=== PATIENT | male | born 1965 | race Caucasian/White ===

== ENCOUNTER 2020-01-01 15:31 | Emergency (ER) | payer MEDICAID, SELFPAY ==
[2020-01-01] VITALS (42 sets, daily range): BP systolic 143–147; BP diastolic 89–100; PULSE 71–87; RESP 0–20; TEMP 37; O2SAT 90–99; BMI 37.3
--- NOTE | 2020-01-01 15:43 | ED_ITS ---
Entered by Alisa Keller, acting as scribe for HPI - Chest Pain General: Chief Complaint: Chest Pain Stated Complaint: Chest pain Time Seen by Provider: 01/01/20 15:42 Source: patient Mode of arrival: ambulatory Limitations: no limitations History of Present Illness: HPI narrative: 54 yo Male presents to ED with complaint of chest pain that started about 20 minutes ago. Pt states that he has sharp, stabbing pain. Pt states that the pain is substernal and doesn't radiate. MD complaint: chest pain Onset (ago): minute(s) (20) Timing of current episode: constant and still present Prior episodes: Yes Onset: during rest Pain location: substernal Pain radiation: none Severity: severe Quality: sharp Relieving factors: nothing Exacerbating factors: nothing Associated symptoms: Reports diaphoresis, dyspnea and nausea; Deny palpitations or syncope Treatment prior to arrival: none Risk Factors: Coronary artery disease risk factors: diabetes, smoking history and hypertension Review of Systems General: Reports: other (negative unless marked) Const: Reports: diaphoresis Eyes: Denies: change in vision or blurry vision ENMT: Denies: throat pain, painful swallowing, hoarseness, ear pain, ear discharge, Change in hearing or nasal discharge Card: Reports: chest pain; Denies: palpitations, irregular heart rhythm, syncope, pre-syncope, shortness of breath on exertion or shortness of breath when lying down Resp: Reports: shortness of breath; Denies: productive cough, non-productive cough, wheezing, coughing up blood or chest congestion GI: Reports: nausea : Denies: flank pain, difficulty urinating, painful urination, urinary frequency, urinary urgency, decreased urine ouput, urinary incontinence or blood in urine Musc: Denies: neck pain, back pain, extremity pain, extremity swelling, joint pain, joint swelling, joint warmth or joint stiffness Skin/Breast: Denies: rash, skin tenderness or yellow skin Neuro: Denies: headache, numbness in extremities, weakness in extremities, changes in sensation, lack of coordination, difficulty walking, dizziness, vertigo or confusion Endo: Denies: excessive thirst, tired all the time, cold intolerance, excessive sweating, flushing or hot flashes Jhon/Lymph: Denies: easy bruising, easy bleeding, petechiae or enlarged lymph nodes All/Imm: Denies: hives, throat swelling, tongue swelling, facial swelling or acute wheezing PFSH ED PFSH: Statuses (acute, chronic, etc) shown below reflect problem list status as previously entered and may not be historically accurate Social History Smoking and tobacco status: current every day smoker Physical Exam Const: COMMON NORMALS: no apparent distress, oriented x3, no limitations, healthy appearing and well nourished EXAM LIMITATIONS: no altered mental status GENERAL APPEARANCE: cooperative, well kempt and well developed ORIENTATION/CONSCIOUSNESS: Yes awake HENMT: COMMON NORMALS: normocephalic, head/scalp atraumatic, hearing grossly normal bilaterally, external ears normal, EAC's normal, external nose normal and moist oral mucous membranes HEAD & SCALP: normal to inspection, normocephalic and atraumatic FACE & SINUS: normal facial exam and face symmetric NOSE: external nose normal and nares normal EXTERNAL EAR: Yes external ears normal EXTERNAL AUDITORY CANAL: EAC's normal MOUTH: oral and palatal mucosa normal and tongue normal Eye: COMMON NORMALS: PERRL, EOMs intact bilaterally, conjunctivae normal and no scleral icterus GENERAL EYE: normal appearance of both eyes and normal light reflex CONJUNCTIVA: Yes conjunctivae normal SCLERA: sclerae normal CORNEA: Yes corneas normal PUPIL: Yes PERRL DIRECT OPHTHALMOSCOPY: Yes normal light reflex Neck/C-Spine: COMMON NORMALS: full ROM, no lymphadenopathy, supple, no meningeal signs and no JVD GENERAL: Yes normal visual inspection and Yes trachea midline CERVICAL SPINE: Yes cervical ROM normal Chest: COMMONS NORMALS: inspection of chest normal and palpation of chest normal Resp: COMMON NORMALS: normal respiratory effort, no retractions, no use of accessory muscles and clear to auscultation bilaterally EFFORT & INSPECTION: Yes able to speak in complete sentences AUSCULTATION: clear to auscultation bilaterally Cardio: COMMON NORMALS: no JVD, regular rate, regular rhythm, S1 normal heart sound, S2 normal heart sound, no gallops, no clicks, no murmurs and no rub JUGULAR VENOUS DISTENTION: no JVD RATE: regular rate RHYTHM: regular rhythm HEART SOUNDS: S1 normal and S2 normal GI: COMMON NORMALS: soft to palpation, non-tender, no hepatosplenomegaly and no masses INSPECTION: Yes normal to inspection PALPATION: Yes soft and Yes no hepatosplenomegaly : COMMON NORMALS: Yes no CVA tenderness BLADDER/KIDNEY EXAM: Yes no CVA tenderness Back/Pelvis: COMMON NORMALS: no CVA tenderness, thoracic and lumbar spine normal to inspection, no thoracic nor lumbar tenderness and thoraco-lumbar ROM normal Extremity: COMMON NORMALS: normal to inspection, full ROM, normal capillary refill, no joint enlargement, no clubbing, cyanosis or edema and no calf tenderness Neuro: COMMON NORMALS: oriented x3, CN's II-XII intact bilaterally, moves all extremities, no focal motor deficits and no sensory deficits noted MENINGEAL SIGNS: Yes no meningeal signs Psych: COMMON NORMALS: mental status grossly normal, thought process normal, cooperative, affect normal, speech normal and activity/motor behavior normal APPEARANCE: Yes well kempt SPEECH: Yes normal speech THOUGHT PROCESS: normal thought process Skin: COMMON NORMALS: no rashes or lesions noted, skin turgor normal, no jaundice, no petechiae and no mottling GENERAL SKIN EXAM: no rashes or lesions noted and turgor normal Course Vital Signs: Vital signs: Vital Signs Temperature 98.6 F 01/01/20 15:45 Pulse Rate 81 01/01/20 16:17 Respiratory Rate 16 01/01/20 16:17 Blood Pressure 143/89 01/01/20 16:17 Pulse Oximetry 95 01/01/20 16:17 MDM - Chest Pain MDM Narrative: Medical decision making narrative: HEART Score - 3 I went to discuss the patient's care with them and they were walking out the door at that time. They were apologetic stating they knew we were busy and did not have time. They did get the results of their labs but refused to stay for further care. Then there so they were leaving against my advice. They would not stay to receive discharge instructions or sign AMA papers. Lab Data: Labs: Lab Results 01/01/20 01/01/20 01/01/20 Range/Units 16:02 16:02 16:02 WBC 9.9 (4.0-10.0) 10^3/ uL RBC 4.67 (4.1-5.3) 10^6/u L Hgb 14.1 (11.7-16.6) g/dL Hct 42.8 (42.0-52.0) % MCV 91.6 (80-94) fL MCH 30.2 (28.0-34.0) pg MCHC 32.9 (30.0-36.0) g/dL RDW 13.5 (12.1-15.1) % Plt Count 158 (130-400) 10^3/c mm MPV 12.0 H (7.4-10.4) fL Neut % (Auto) 71.0 % Lymph % (Auto) 21.6 % [place] % (Auto) 4.4 % Eos % (Auto) 2.2 % Baso % (Auto) 0.5 % Neut # (Auto) 7.0 (1.8-7.7) 10^3/u L Lymph # (Auto) 2.1 (0.8-4.8) 10^3/u L [place] # (Auto) 0.4 (0.2-0.9) 10^3/u L Eos # (Auto) 0.2 (0.0-0.8) 10^3/u L Baso # (Auto) 0.1 (0.0-0.1) 10^3/u L Nucleated RBC % (a uto) 0 % Nucleated RBCs # 0.0 /100WBC PT 12.30 (10.5-13.3) SECO NDS INR 0.89 (0.8-1.2) D-Dimer 0.44 (0-0.59) ug/mIFE U Sodium 138 (136-145) mmol/L Potassium 3.9 (3.5-5.1) mmol/L Chloride 101 (98-107) mmol/L Carbon Dioxide 22 (22-29) mmol/L Anion Gap 18.9 (5-19) BUN 12 (6-20) mg/dL Creatinine 0.6 L (0.7-1.2) mg/dL GFR Calculation 141.5 H (90-130) mL/min Glucose 136 H (65-115) mg/dL Calcium 9.5 (8.5-10.5) mg/dL Magnesium 2.0 (1.7-2.3) mg/dL Total Bilirubin 0.2 (0.15-1.2) mg/dL AST 14 (0-40) U/L ALT 14 (0-41) U/L Alkaline Phosphata se 66 (40-130) IU/L Creatine Kinase 178 (39-308) U/L Troponin T Baselin e (0-15) ng/mL Troponin T [address] [place] (0-15) ng/mL Delta Troponin T (0-10) ABS# Total Protein 6.3 L (6.6-8.7) g/dL Albumin 4.2 (3.5-5.2) g/dL Globulin 2.1 (1.3-4.6) g/dL Lipase 31 (13-60) U/L 01/01/20 01/01/20 Range/Units 16:02 18:08 WBC (4.0-10.0) 10^3/ uL RBC (4.1-5.3) 10^6/u L Hgb (11.7-16.6) g/dL Hct (42.0-52.0) % MCV (80-94) fL MCH (28.0-34.0) pg MCHC (30.0-36.0) g/dL RDW (12.1-15.1) % Plt Count (130-400) 10^3/c mm MPV (7.4-10.4) fL Neut % (Auto) % Lymph % (Auto) % [place] % (Auto) % Eos % (Auto) % Baso % (Auto) % Neut # (Auto) (1.8-7.7) 10^3/u L Lymph # (Auto) (0.8-4.8) 10^3/u L [place] # (Auto) (0.2-0.9) 10^3/u L Eos # (Auto) (0.0-0.8) 10^3/u L Baso # (Auto) (0.0-0.1) 10^3/u L Nucleated RBC % (a uto) % Nucleated RBCs # /100WBC PT (10.5-13.3) SECO NDS INR (0.8-1.2) D-Dimer (0-0.59) ug/mIFE U Sodium (136-145) mmol/L Potassium (3.5-5.1) mmol/L Chloride (98-107) mmol/L Carbon Dioxide (22-29) mmol/L Anion Gap (5-19) BUN (6-20) mg/dL Creatinine (0.7-1.2) mg/dL GFR Calculation (90-130) mL/min Glucose (65-115) mg/dL Calcium (8.5-10.5) mg/dL Magnesium (1.7-2.3) mg/dL Total Bilirubin (0.15-1.2) mg/dL AST (0-40) U/L ALT (0-41) U/L Alkaline Phosphata se (40-130) IU/L Creatine Kinase (39-308) U/L Troponin T Baselin e 8 (0-15) ng/mL Troponin T [address] [place] 7.10 (0-15) ng/mL Delta Troponin T -0.90 L (0-10) ABS# Total Protein (6.6-8.7) g/dL Albumin (3.5-5.2) g/dL Globulin (1.3-4.6) g/dL Lipase (13-60) U/L Imaging Data^: CXR: Radiologist's impression: [address] [address] XRay Report Signed Patient: Charmaine Neely #: [id number] : 1965Acct#:[id number] Age/Sex: 54 / MADM Date: 01/01/20 [facility] Attending Dr: Ordering Provider/Ordering MD: Roula Cleary DO Date of Service: 01/01/20 Procedure(s): XR chest 1V portable [id number] Accession Number(s): [id number] Report Number: [id number] WS: [id number] Portable AP upright chest, 01/01/2020 Clinical Data: cough Comparison: Portable chest, 11/01/2019. Findings: No nodules, masses or effusions are seen. The heart is normal. The pulmonary vascularity is not increased. No pneumonia or pneumothorax is seen. Monitor leads are on the chest wall. XR/XR chest 1V portable [id number] Impression: Negative chest. Dictated By:Vanessa Holden MD Signed By:Vanessa Holden MDSigned Date/Time:01/01/20 161 DD/ 161 EKG Data^: EKG 1: Attestation: I personally reviewed and interpreted this EKG as follows: EKG interpretation date: 01/01/20 EKG interpretation time: 15:42 Interpretation: Normal sinus rhythm at 84 beats a minute, no acute ST segment changes. EKG 2: Attestation: I personally reviewed and interpreted this EKG as follows: EKG interpretation date: 01/01/20 Interpretation: Normal sinus rhythm at 79 beats a minute, no acute ST segment changes. Discharge Plan Discharge Patient Disposition: Left Against Medical Advice Condition: Stable Referrals: Dayo Fernandez DO [Family Provider] - Coding Level of Care Code [facility] Manager for Chg Fwd Exam Problem Focused The documentation recorded by the Arianna hardy Carmen, accurately reflects the service I personally performed and the decisions made by Madiha macedo Eli N Jan 01, 2020 15:31
--- NOTE | 2020-01-01 15:45 | XR_ITS ---
WS: [id number] Portable AP upright chest, 01/01/2020 Clinical Data: cough Comparison: Portable chest, 11/01/2019. Findings: No nodules, masses or effusions are seen. The heart is normal. The pulmonary vascularity is not increased. No pneumonia or pneumothorax is seen. Monitor leads are on the chest wall. XR/XR chest 1V portable [id number] Impression: Negative chest.
--- NOTE | 2020-01-01 15:45 | ECG_ITS ---
Measurements Intervals [place] Rate: 84 P: 51 [place]: 156 QRS: 72 QRSD: 98 T: 53 QT: 344 QTc: 408 SINUS RHYTHM Compared to ECG 11/01/2019 12:40:39 T-wave abnormality no longer present Electronically Signed On 01-01-2020 20:06:43 PROTEIN CHEMIST by Mary Ellen Song M.D. [email or web address]
[2020-01-01] MEDS: aspirin 81 mg Chew Tablet 324 MG PO (16:11)
[2020-01-01 16:15] LABS: Basophils # 0.1 10^3/uL (0.0-0.1); Basophils % 0.5 %; Eosinophils # 0.2 10^3/uL (0.0-0.8); Eosinophils % 2.2 %; Hematocrit 42.8 % (42.0-52.0); Hemoglobin 14.1 g/dL (11.7-16.6); Lymphocytes # 2.1 10^3/uL (0.8-4.8); Lymphocytes % 21.6 %; Mean Corpuscular HGB Conc 32.9 g/dL (30.0-36.0); Mean Corpuscular Hemoglobin 30.2 pg (28.0-34.0); Mean Corpuscular Volume 91.6 fL (80-94); Monocytes # 0.4 10^3/uL (0.2-0.9); Monocytes % 4.4 %; Nucleated Red Blood Cells % 0 %; Platelet Count 158 10^3/cmm (130-400); Red Blood Count 4.67 10^6/uL (4.1-5.3); Red Cell Distribution Width 13.5 % (12.1-15.1); White Blood Count 9.9 10^3/uL (4.0-10.0)
[2020-01-01 16:29] LABS: Troponin(5th) Baseline 8 ng/mL (0-15)
[2020-01-01 16:32] LABS: INR 0.89 (0.8-1.2)
[2020-01-01 16:35] LABS: D Dimer 0.44 ug/mIFEU (0-0.59)
[2020-01-01 16:53] LABS: Alanine Aminotransferase 14 U/L (0-41); Albumin Level 4.2 g/dL (3.5-5.2); Alkaline Phosphatase 66 IU/L (40-130); Anion Gap 18.9 (5-19); Blood Urea Nitrogen 12 mg/dL (6-20); Calcium 9.5 mg/dL (8.5-10.5); Carbon Dioxide 22 mmol/L (22-29); Chloride 101 mmol/L (98-107); Creatine Phosphokinase 178 U/L (39-308); Globulin 2.1 g/dL (1.3-4.6); Glomerular Filtration Rate 141.5 mL/min (90-130); Glucose 136 mg/dL (65-115); Potassium 3.9 mmol/L (3.5-5.1); Sodium 138 mmol/L (136-145); Total Bilirubin 0.2 mg/dL (0.15-1.2); Total Protein 6.3 g/dL (6.6-8.7)
[2020-01-01 16:54] LABS: Aspartate Amino Transferase 14 U/L (0-40); Lipase 31 U/L (13-60)
--- NOTE | 2020-01-01 21:45 | ECG_ITS ---
Measurements Intervals [place] Rate: 79 P: 55 MD: 168 QRS: 67 QRSD: 99 T: 47 QT: 351 QTc: 405 SINUS RHYTHM Compared to ECG 11/01/2019 12:40:39 T-wave abnormality no longer present Electronically Signed On 01-01-2020 20:09:10 REGIONAL MARKETING DIRECTOR by Mary Ellen Song M.D. [email or web address]
== END 2020-01-01 19:10 | disposition left against medical advice (07) ==
PROVIDERS: Emergency Provider Emergency Medicine; Family Provider Internal Medicine
DX: R07.9 Chest pain, unspecified (principal); Z53.21 Procedure and treatment not carried out due to patient leaving prior to being seen by health care provider; F17.210 Nicotine dependence, cigarettes, uncomplicated
CPT/HCPCS: 36415; 71045; 80053; 82550; 83690; 83735; 84484; 85025; 85378; 85610; 93005; 99283; 99284

== ENCOUNTER → 2022-06-01 07:27 | Outpatient (BNVA) | payer MEDICAID, SELFPAY | PROVIDERS: Family Provider Internal Medicine; PCP Nurse Practitioner Family; Visit Provider Nurse Practitioner Family | DX: R39.9 Unspecified symptoms and signs involving the genitourinary system (principal); N48.1 Balanitis; N35.811 Other urethral stricture, male, meatal | CPT/HCPCS: 81003; 99203 ==

== ENCOUNTER → 2022-06-05 08:24 | Outpatient (BNVA) | payer MEDICAID, SELFPAY | PROVIDERS: Family Provider Internal Medicine; PCP Nurse Practitioner Family; Visit Provider Urology | DX: R39.9 Unspecified symptoms and signs involving the genitourinary system (principal); N48.1 Balanitis; N35.811 Other urethral stricture, male, meatal | CPT/HCPCS: 51798; 81003; 99214 ==

== ENCOUNTER 2022-06-08 06:54 | Day surgery (SDC) | payer MEDICAID, SELFPAY ==
[2022-06-07 09:13] VITALS: BMI 36.5
[2022-06-08] VITALS (13 sets, daily range): BP systolic 106–165; BP diastolic 60–104; PULSE 64–81; RESP 16–20; TEMP 36.4–36.8; O2SAT 92–97
[2022-06-08 07:36] LABS: Glucose Point of Care 129 mg/dL (70-110)
[2022-06-08] MEDS: sodium chloride 0.9% 1,000 ML 30 ML IV (08:00)
--- NOTE | 2022-06-08 08:01 | ANES.PREANE2 ---
Pre-Anesthetic Assessment Height/Weight: Height 1.8 m Weight 118.841 kg Temp Pulse Resp BP Pulse Ox 97.9 F 81 20 H 159/97 94 06/08/22 07:11 06/08/22 07:11 06/08/22 07:11 06/08/22 07:11 06/08/22 07:11 Preop Diagnosis: Severe meatal stenosis with near retention Operation Date: 06/08/22 08:25 Proposed Procedures p CYSTOSCOPY URETHRAL DILATION VENTRAL MEATOTOMY 22575 05757, N35.919(Not Applicable) - Ben Ojeda MD s Meatotomy, Uretheral(Not Applicable) - Ben Ojeda MD Familial anesthetic complications: hard to wake up Was Beta Kyler taken within 24 hours: N/A Was Clonidine taken within 24 hours: N/A Last intake: Intake Last Liquid Date 06/07/22 Last Liquid Time 22:30 Last Solid Date 06/07/22 Last Solid Time 18:30 Social Tobacco and No alcohol Exam alert, oriented x 3, clear to auscultation bilaterally and regular rate & rhythm Airway Mallampati: Class III Dentition: other (no teeth) Pulmonary None reported CV/HEM Hypertension None reported GI Gastroesophageal Reflux Disease Metabolic Diabetes Mellitus and Morbid Obesity Anesthetic Plan ASA status: 3 Anesthesia: General Risk of > 500 ml blood loss (7ml/kg in children): No Medications/Allergies Home Medications Medication Instructions Recorded Confirmed Last Taken Type amlodipine 5 mg tablet 10 mg PO DAILY 04/27/22 06/08/22 06/07/22 History aspirin 81 mg chewable tablet 81 mg PO DAILY 04/27/22 06/07/22 06/05/22 History (Angella Chewable Low Dose Aspirin) blood sugar diagnostic (Advanced 04/27/22 06/05/22 Unknown History Gluc Meter Test Strip) hydrochlorothiazide 25 mg tablet 25 mg PO PRN PRN 04/27/22 06/07/22 Unknown History lisinopril 10 mg tablet 10 mg PO DAILY 04/27/22 06/08/22 06/07/22 History metformin 500 mg tablet 500 mg PO BID 04/27/22 06/08/22 06/07/22 History montelukast 10 mg tablet 10 mg PO DAILY 04/27/22 06/08/22 06/07/22 History pantoprazole 40 mg tablet,delayed 40 mg PO DAILY 04/27/22 06/08/22 06/07/22 History release (Protonix) sertraline 100 mg tablet 100 mg PO DAILY 04/27/22 06/08/22 06/07/22 History sitagliptin 100 mg tablet (Januvia) 100 mg PO DAILY 04/27/22 06/07/22 06/04/22 History trazodone 100 mg tablet 100 mg PO DAILY tab 04/27/22 06/08/22 06/07/22 History insulin detemir U-100 100 unit/mL 6 unit SUBCUT DAILY 06/01/22 06/08/22 06/07/22 History subcutaneous solution (Levemir U-100 Insulin) nystatin-triamcinolone 100,000 1 applic TOPICAL BID #60 g 06/01/22 06/07/22 Unknown Rx unit/g-0.1 % topical cream ibuprofen 800 mg tablet 800 mg PO BID 06/07/22 06/08/22 06/08/22 History Allergies Allergy/AdvReac Type Severity Reaction Status Date / Time adhesive tape Allergy Unknown Verified 06/07/22 09:07 bupropion [From Wellbutrin] Allergy ALGY-Rash Verified 06/07/22 09:07 codeine Allergy ALGY-Rash Verified 06/07/22 09:07 hydromorphone [From Dilaudid] Allergy ADR-Nausea Verified 06/07/22 09:07 ALL NARCOTICS Allergy ADR-Vomitin Uncoded 06/07/22 09:07 g CILLINS Allergy ALGY-Swell Uncoded 06/07/22 09:07 Lip/Tongue/Throat Current Medications Generic Name Dose Route Start Last Admin Trade Name Freq PRN Reason Stop Dose Admin Sodium Chloride 1,000 mls @ 30 mls/hr 06/08/22 07:00 06/08/22 08:00 Sodium Chloride 0.9% IV 06/09/22 06:59 30 mls/hr .Q24H CHUY Administration PFSH Anesthesia Medical History Depression GERD (gastroesophageal reflux disease) Hypertension Type 2 diabetes mellitus Surgical History History of placement of ear tubes Hx of appendectomy Hx of hernia repair X 3 Hx of sinus surgery X 4 Family History Father Heart attack Mother Diabetes Heart disease Fibromyalgia Social History Smoking and tobacco status: current every day smoker Alcohol intake: never Marital status: Current occupational status: disabled History of recent travel: No Data Anesthesia Cardiac Studies: No Data to Display
--- NOTE | 2022-06-08 09:27 | P.HPUD_ITS ---
Surgery/Procedure H&P Update DATE OF PROCEDURE: June 08, 2022 DATE H&P PERFORMED: 06/05/22 H&P UPDATE INFORMATION: I have reviewed H&P completed within last 30 days, I have examined patient prior to procedure, No changes to prior documentation and H&P is in [facility] [place] EMR on date indicated CHANGES TO PREVIOUS DOCUMENTATION: None PLANNED PROCEDURE: Operation Date: 06/08/22 08:25 Proposed Procedures p CYSTOSCOPY URETHRAL DILATION VENTRAL MEATOTOMY 17074 [id number], N35.919(Not Applicable) - Ben Ojeda MD s Meatotomy, Uretheral(Not Applicable) - Ben Ojeda MD
--- NOTE | 2022-06-08 09:27 | P.OP_ITS ---
Operative Report Date of procedure: June 08, 2022 Pre-op diagnosis: Severe meatal stenosis with near retention Post-op diagnosis: Severe meatal stenosis with near retention Procedure done: 1. Cystoscopy with urethral dilation Implants: 16 Gabonese coud? tip Skinner catheter Specimens removed/disposition: None Pathology: None Surgeon: Rusty Anesthesia: General Estimated blood loss: <10 cc Urine output: Not measured Complications: None Findings: Very tight pinpoint meatal stenosis with some narrowing into the fossa navicularis. Well dilated and Skinner catheter left in place for passive dilation. He may still at some point need a ventral meatotomy after he is healed up more appropriately. There is a pretty good chance that self-catheterization will maintain the meatus adequately without meatotomy. Brief History: Kuldip is a 56-year-old white male originally evaluated in May 2022 for progressive bladder outlet obstructive symptoms and balanitis. Was found to have a pinpoint opening of the urethral meatus. Was treated with combination triamcinolone and nystatin cream for the external condition and recommended urethral dilation possible ventral meatotomy. Admitted for that through outpatient surgery today. Procedure: After routine preoperative evaluation examination and obtaining of informed consent he was taken to the operating suite on 06/08/2022 where general anesthesia was administered without difficulty after appropriate timeout was performed, SCDs confirmed to be functioning, preoperative antibiotics administered, beta-anderson protocol confirmed. Prepped and draped in usual sterile fashion in dorsolithotomy position paying careful attention to avoiding pressure points. The meatus was examined. It was pinpoint type. A well-lubricated 8 Gabonese [place] sound was utilized to dilate the very distal aspect of the urethra. This was then replaced with a 10 Gabonese and then a 12 Gabonese [place] sound dilating only the distal aspect of the urethra and fossa navicularis. A 7 Gabonese ureteroscope was then advanced into the urethra and into the bladder. The entire urethra showed some inflammatory changes mostly consistent with likely chronic obstruction from the distal urethral obstruction meatal/fossa navicularis narrowing. A wire was passed through the scope and the urethra was dilated with Amplatz renal dilators up to 20 Gabonese. The first 3 over the wire and the remainder of the dilators up to 20 Gabonese were passed over the snake. They were only passed into the distal urethra just proximal to the narrowing A 16 Gabonese coud? tip catheter was converted to a cowl[place] tip catheter and was passed over the wire. It was still tight but the catheter was able to be manipulated into the bladder. Catheter confirmed to be draining and then the balloon inflated with 10 cc. Confirmation of balloon function was made and then the wire was removed. Dressing with antibiotic ointment was applied to the meatus/catheter junction He tolerated procedure well without complications and was awakened in the operating room and returned to the recovery room in stable condition. PLANS: 1. Anticipate discharge from outpatient surgery 2. Follow-up late next week with ANGY Barger for voiding trial and SCIC instruction. The plan will be to focus only on the distal 2 to 3 cm of the urethra to keep urethral stricture patency maintained.
[2022-06-08] MEDS: ceFAZolin 2,000 MG in sodium chloride 0.9% (plus) 50 ML 100 MG IV (10:03)
[2022-06-08] MEDS: lidocaine 2% Urojet 20 mL TOPICAL (10:26)
[2022-06-08] MEDS: neomycin-poly-bacitracin oint 28 gm 1 APPLIC TOPICAL (10:43)
--- NOTE | 2022-06-08 11:02 | SUR.PHASEI ---
1101 Pt awake and able to lift head off pillow. LMA removed.
--- NOTE | 2022-06-08 15:00 | ANE.PACU2 ---
Inpatient post-anesthesia follow up: Airway intact: Yes Vital signs: Temperature 97.6 F Pulse Rate 72 Respiratory Rate 18 Blood Pressure 162/85 Pulse Oximetry 96 Oxygen Delivery Me thod Room Air Oxygen Flow Rate 6 Fraction of Inspir ed Oxygen Hydration adequate: Yes Nausea and vomiting: No Pain level: 1 Mental status: Baseline
== END 2022-06-08 12:29 | disposition home or self-care (01) ==
PROVIDERS: PCP Nurse Practitioner Family; Visit Provider Urology
PROC: 0TJB8ZZ Inspection of Bladder, Via Natural or Artificial Opening Endoscopic (ICD-10-PCS; CPT 52000; principal; 2022-06-08 08:15)
DX: N35.911 Unspecified urethral stricture, male, meatal (principal); I10 Essential (primary) hypertension; K21.9 Gastro-esophageal reflux disease without esophagitis; E11.9 Type 2 diabetes mellitus without complications; E66.01 Morbid (severe) obesity due to excess calories; Z68.36 Body mass index [BMI] 36.0-36.9, adult; Z79.82 Long term (current) use of aspirin; Z79.4 Long term (current) use of insulin; F32.9 Major depressive disorder, single episode, unspecified
CPT/HCPCS: 52281; 36416; 82962; J1100; J1885; J2405; J2704; J7030

== ENCOUNTER → 2022-06-18 13:08 | Outpatient (BNVA) | payer MEDICAID, SELFPAY | PROVIDERS: PCP Nurse Practitioner Family; Visit Provider Nurse Practitioner Family | DX: N35.919 Unspecified urethral stricture, male, unspecified site (principal); N48.1 Balanitis | CPT/HCPCS: 51700; 99213 ==

== ENCOUNTER → 2022-06-23 13:17 | Outpatient (BNVA) | payer MEDICAID, SELFPAY | PROVIDERS: PCP Nurse Practitioner Family; Visit Provider Nurse Practitioner Family | DX: R39.9 Unspecified symptoms and signs involving the genitourinary system (principal); R30.0 Dysuria | CPT/HCPCS: 81003; 87086 ==

== ENCOUNTER → 2022-07-16 07:56 | Outpatient (BNVA) | payer MEDICAID, SELFPAY | PROVIDERS: PCP Nurse Practitioner Family; Visit Provider Urology | DX: N48.0 Leukoplakia of penis (principal); N35.919 Unspecified urethral stricture, male, unspecified site | CPT/HCPCS: 51741; 51798; 81003; 99213 ==

== ENCOUNTER 2023-07-31 14:19 | Emergency (ER) | payer MEDICAID, SELFPAY ==
[2023-07-31 14:29] VITALS: BP 127/86; PULSE 81; RESP 22; TEMP 36.6; O2SAT 99; BMI 34.8
--- NOTE | 2023-07-31 14:47 | ED_ITS ---
HPI - Skin/Abscess/Foreign Bdy General: Chief complaint: Skin/Abscess/Foreign Body Stated complaint: multi wasp sting Time Seen by Provider: 07/31/23 14:38 History of Present Illness: 58-year-old male was mowing this morning and believes he ran over a hive of wasps or bees. He was stung multiple times. He is not allergic to wasps or bees. He has had several areas that are red, slightly raised and painful. He is allergic to all opiate-based pain medication. His gave him Benadryl 50 mg at 1 PM. This seems to have helped but he still in pain. does have an EpiPen but did not have to use it as he did not have any oropharyngeal swelling, shortness of breath, syncope, or other anaphylactic type symptoms. It has been about 5 hours since he was stung. Associated symptoms: Deny chills, fever(s), nausea or vomiting Review of Systems General: Reports: 10 or more systems reviewed and unremarkable except in HPI and below Const: Denies: fever(s) or chills Eyes: Denies: change in vision ENMT: Denies: throat pain Card: Denies: chest pain, edema or syncope Resp: Denies: dyspnea or productive cough GI: Denies: abdominal pain, nausea, vomiting or diarrhea : Denies: flank pain, dysuria or urinary frequency Musc: Denies: neck pain, back pain, extremity pain or extremity swelling Neuro: Denies: headache(s), numbness in extremities, weakness in extremities, lack of coordination or difficulty walking [facility] PFSH: Medical History Depression GERD (gastroesophageal reflux disease) Hypertension Type 2 diabetes mellitus Surgical History History of placement of ear tubes Hx of appendectomy Hx of hernia repair X 3 Hx of sinus surgery X 4 Family History Father Heart attack Mother Diabetes Heart disease Fibromyalgia Social History Smoking and tobacco status: current every day smoker Alcohol intake: never Substance/Drug Use: never Marital status: Current occupational status: disabled Physical Exam Const: COMMON NORMALS: no limitations, alert and well nourished EXAM LIMITATIONS: no altered mental status HENMT: COMMON NORMALS: normocephalic, atraumatic and external ears normal HEAD & SCALP: normocephalic and atraumatic EXTERNAL EAR: Yes external ears normal MOUTH: no muffled voice OTHER: Lip, tongue, uvula normal. Voice normal. No stridor or wheezing. Eye: COMMON NORMALS: EOMs intact bilaterally, conjunctivae normal and no scleral icterus CONJUNCTIVA: Yes conjunctivae normal Neck/C-Spine: COMMON NORMALS: no JVD GENERAL: Yes normal visual inspection and Yes trachea midline Resp: COMMON NORMALS: normal respiratory effort, No use of accessory muscles and clear to auscultation bilaterally AUSCULTATION: clear to auscultation bilaterally Cardio: COMMON NORMALS: no JVD, regular rate and regular rhythm RATE: regular rate RHYTHM: regular rhythm GI: COMMON NORMALS: Soft to palpation and non-tender PALPATION: Yes Soft to palpation and No Guarding due to palpation present (GI) Extremity: COMMON NORMALS: normal to inspection Neuro: COMMON NORMALS: moves all extremities, no focal motor deficits and no sensory deficits noted SENSORIUM/ORIENTATION: Yes alert SPEECH: speech normal Psych: COMMON NORMALS: mental status grossly normal, Normal thought process present, cooperative and speech normal SPEECH: Yes normal speech THOUGHT PROCESS: Normal thought process present Skin: COMMON NORMALS: turgor normal and no jaundice NARRATIVE SKIN EXAM: There are scattered small erythematous macules, and a few erythematous papules and nodules. These are located on the hand, arms, upper buttock, abdomen, back, legs. There are approximately 20 that I can make out GENERAL SKIN EXAM: turgor normal Course Vital Signs: Vital signs: Vital Signs Temperature 97.8 F 07/31/23 14:29 Pulse Rate 81 07/31/23 14:29 Respiratory Rate 22 H 07/31/23 14:29 Blood Pressure 127/86 07/31/23 14:29 Pulse Oximetry 99 07/31/23 14:29 Oxygen Delivery Me thod Room Air 07/31/23 14:29 MDM - Skin/Abscess/Foreign Bdy Medicial Decision Making 58-year-old male here for pain control related to multiple stings from wasp or bees. No criteria for anaphylaxis. Patient given Decadron, Pepcid, Tylenol. He already had Benadryl 50 mg at 1 PM. Patient has been taking 1200 mg of ibuprofen daily. He told me that he cannot take Tylenol because he is at risk for chronic kidney disease. It seems the patient and his have it exactly opposite. He should be taking Tylenol rather than NSAIDs. This will be corrected. I have canceled ibuprofen on his medications and instructed him to use up to 3 g of Tylenol daily as needed for pain. Discharge Plan Discharge Patient Disposition: Home Clinical Impression: Accidental wasp sting Condition: Stable Prescriptions: Discontinued sulfamethoxazole-trimethoprim 800-160 mg tablet 1 tab PO BID Qty: 20 0RF ibuprofen 800 mg Tablet 800 mg PO BID No Action aspirin [Angella Chewable Aspirin] 81 mg tablet,chewable 81 mg PO DAILY montelukast 10 mg tablet 10 mg PO DAILY trazodone 100 mg tablet 100 mg PO DAILY lisinopril 10 mg tablet 10 mg PO DAILY sertraline 100 mg tablet 100 mg PO DAILY amlodipine 5 mg tablet 10 mg PO DAILY (DME) Advanced Gluc Meter Test Strip Strip See Rx Instructions .Route Rx Instructions: As directed metformin 500 mg tablet 500 mg PO BID pantoprazole [Protonix] 40 mg tablet,delayed release (DR/EC) 40 mg PO DAILY Januvia 100 mg tablet 100 mg PO DAILY Rx Instructions: pt holding this medication hydrochlorothiazide 25 mg tablet 25 mg PO PRN PRN (Reason: Inflammation) Levemir U-100 Insulin 100 unit/mL solution 6 unit SUBCUT DAILY nystatin-triamcinolone 100,000-0.1 unit/g-% cream 1 applic topical BID Qty: 60 1RF Discharge Orders: Discharge ED (Routine); Ordered 07/31/23 Ordered By: Alexis Shields Referrals: Vanessa Choudhary FNP [Primary Care Provider] - Patient Instructions: Insect Bite or Sting (ED), Pain Management Activity Restrictions/Additional Instructions: 1. Take Benadryl 25 to 50 mg every 4 hours as needed for symptoms such as swelling, redness, or itching. 2. Take Tylenol 500 mg every 4-6 hours as needed for pain. You may supplement pain control with ice packs or a cold shower. 3. You were given a steroid shot that will last in your system for the next few days. 4. Read handout for more information. If you have trouble breathing or swelling in the mouth, lightheadedness, or other serious symptoms then return to the emergency department or call 911. Coding Level of Care Code ED [employer] for [facility]
[2023-07-31] MEDS: famotidine 20 mg Tablet 40 MG PO (14:52)
[2023-07-31] MEDS: acetaminophen 500 mg Tablet 1000 MG PO (14:54)
[2023-07-31] MEDS: dexamethasone 10 mg/mL INJ IM (14:56)
--- NOTE | 2023-07-31 15:03 | PC.NURSE ---
While in the room about to give patient his medications, the patient said he could not take tylenol due to his kidneys. I told him I would let the physician know. Then Dr. Shields walked in and the patient told him he could not have tylenol and needed something else because of his kidneys. Dr. Shields and the patient had a lengthy discussion regarding that he can have tylenol and that he should not be taking inbuprofen and NSAIDS. So Dr. Shields asked me to cancel the Toradol order and only give the patient they tylenol.
== END 2023-07-31 16:16 | disposition home or self-care (01) ==
PROVIDERS: Emergency Provider Emergency Medicine; PCP Nurse Practitioner Family
DX: T63.461A Toxic effect of venom of wasps, accidental (unintentional), initial encounter (principal); Z79.82 Long term (current) use of aspirin; Z79.84 Long term (current) use of oral hypoglycemic drugs; Z79.4 Long term (current) use of insulin; I10 Essential (primary) hypertension; E11.9 Type 2 diabetes mellitus without complications; F17.210 Nicotine dependence, cigarettes, uncomplicated
CPT/HCPCS: 96372; 99284; J1100